=== PATIENT | male | born 1980 | race Caucasian/White ===

== ENCOUNTER 2020-06-28 10:15 | Emergency (ER) | payer BC, SELFPAY ==
--- NOTE | ~2020-06-28 | CT_ITS ---
EXAMINATION: CT abdomen pelvis w con INDICATION: Abdominal pain TECHNIQUE: Computed tomographic images of the abdomen and pelvis were obtained after the administrati on of 100 cc of Omnipaque 350 intravenous contrast. The dose-length product (DLP) was 316.39 mGy-cm. Automated exposure control and iterative reconstruction technique were employed. COMPARISON: 11/11/2019 FINDINGS: The lung bases are clear. The heart size is normal. Cysts of the liver measure up to 7 mm i n the right hepatic lobe. The spleen, pancreas, gallbladder, and adrenal glands are normal. The kidne ys are unremarkable. No pathologically enlarged abdominal or pelvic lymph nodes are identified. There is no free intraperitoneal gas or evidence of bowel obstruction. The appendix is normal. A moderate volume of colonic stool is present. IMPRESSION: 1. No CT correlate for the patient's symptoms. Reviewed, dictated and finalized at location A.
[2020-06-28 10:19] VITALS: BP 121/74; PULSE 63; RESP 18; TEMP 36.6; O2SAT 100
[2020-06-28 10:35] VITALS: BP 108/78; PULSE 57; RESP 17; O2SAT 100
[2020-06-28] MEDS: SODIUM CHLORIDE 0.9% IV 1,000 ML 999 ML IV CONT (10:42)
[2020-06-28] MEDS: FAMOTIDINE 20 MG/2 ML VIAL IV PUSH (10:43)
[2020-06-28] MEDS: ONDANSETRON INJ 4 MG/2 ML VIAL IV PUSH (10:43)
--- NOTE | 2020-06-28 10:44 | ED.ABDPAIN ---
HPI - Abdominal Pain General Chief Complaint: Abdominal Pain <LOPEZ Mott Last Filed: 06/28/20 11:52> Stated Complaint: ABD Pain <LOPEZ Mott Last Filed: 06/28/20 11:52> Time Seen by Provider: 06/28/20 10:20 <LOPEZ Mott Last Filed: 06/28/20 11:52> Source: patient <LOPEZ Mott Last Filed: 06/28/20 11:52> Mode of arrival: ambulatory <LOPEZ Mott Last Filed: 06/28/20 11:52> Limitations: no limitations <LOPEZ Mott Last Filed: 06/28/20 11:52> History of Present Illness HPI narrative: Patient is a 40-year-old male who presents with several days duration of generalized abdominal pain noting aching pain throughout the abdomen worse in the lower quadrants patient notes nausea denies emesis notes initially and had some loose stools which have resolved patient denies rectal bleeding or melena or similar occurrence in the past patient has not taken anything for her symptoms. Patient otherwise resting comfortably in the room in no distress upon arrival symptoms worsen with position and activity <LOPEZ Mott Last Filed: 06/28/20 11:52> Related Data Home Medications: Home Medications Medication Instructions Recorded Confirmed gabapentin 300 mg PO DAILY 06/28/20 <LOPEZ Mott Last Filed: 06/28/20 11:52> Allergies/Adverse Reactions: Allergies Allergy/AdvReac Type Severity Reaction Status Date / Time Sulfa (Sulfonamide Allergy Intermediate hives Verified 06/28/20 10:21 Antibiotics) nystatin Allergy Mild hives Verified 06/28/20 10:21 erythromycin base AdvReac Mild Nausea Verified 06/28/20 10:21 phenobarbital AdvReac Mild hyperactivi Verified 06/28/20 10:21 ty <LOPEZ Mott Last Filed: 06/28/20 11:52> Review of Systems Review of Systems: All systems reviewed & are unremarkable except as noted in HPI and below <LOPEZ Mott Last Filed: 06/28/20 11:52> PMFSH Past Medical History Medical History: Medical History Eosinophilic esophagitis Seizures <Amadou Carter PA-C - Last Filed: 06/28/20 11:52> Surgical History Surgical History: Surgical History H/O foot surgery H/O knee surgery History of back surgery S/P orchiopexy <Amadou Carter PA-C - Last Filed: 06/28/20 11:52> Family History Family History: Family History Father Hypertension Mother Hypertension Grandparent Diabetes mellitus <LOPEZ Mott Last Filed: 06/28/20 11:52> Social History Social History: Social History (Updated 06/28/20 @ 10:46 by Amadou Carter PA-C) Smoking status: Never smoker Alcohol intake: current Gender identity (if verbalized by the patient): Male <Amadou Carter PA-C - Last Filed: 06/28/20 11:52> Exam Narrative: Exam Narrative: GENERAL: Well-appearing, well-nourished, and in no acute distress. HEAD: Normocephalic, atraumatic. EYES: PERRLA and EOMI. ENT: Nares clear, no rhinorrhea or epistaxis. Mucous membranes moist. CHEST: Clear to auscultation. No respiratory distress. No wheezes rales or rhonchi HEART: Regular rate and rhythm. No murmur heard. Normal peripheral pulses. ABDOMEN: Soft, generalized abdominal tenderness, nondistended EXTREMITIES: Normal range of motion. No edema. SKIN: Warm, dry, no rash. NEURO: No focal deficits. Alert and oriented x3. PSYCH: Normal mood and affect. <LOPEZ Mott Last Filed: 06/28/20 11:52> Course Course Emergency Course: Patient in the room in no distress aware of case findings treatment plan diagnosis agreeing to follow-up with primary care given reasons to return given medications in the emergency department with improvement <Amadou Carter PA-C - Last Fi
[2020-06-28 11:05] LABS: Estimated Glomerular Filt Rate 56
[2020-06-28 11:06] LABS: Basophils Absolute Auto 0.1 K/mm3 (0.0-0.1); Basophils Percent Auto 1.3 % (0.2-1.2); Eosinophils Absolute Auto 0.3 K/mm3 (0-0.3); Hematocrit 42.9 % (42.0-52.0); Hemoglobin 14.4 g/dL (14.0-18.0); Immature Granulocyte Absolute 0.01 K/mm3 (0.00-0.031); Immature Granulocyte Percent A 0.2 % (0-0.5); Lymphocytes Absolute Auto 2.64 K/mm3 (0.9-3.2); Lymphocytes Percent Auto 42.2 % (18.3-44.2); Mean Corpuscular HGB Conc 33.6 g/dl (32-36); Mean Corpuscular Hemoglobin 31.9 pg (26-34); Mean Corpuscular Volume 94.9 fl (80-100); Mean Platelet Volume 9.5 fl (7.4-10.4); Monocytes Absolute Auto 0.5 K/mm3 (0.1-0.6); Monocytes Percent Auto 8.5 % (2.6-8.5); Neutrophils Absolute Auto 2.7 K/mm3 (1.3-6.7); Neutrophils Percent Auto 43.8 % (45.5-73.1); Platelet Count Result 289 k/mm3 (150-375); Red Blood Count 4.52 M/mm3 (4.6-6.20); White Blood Count 6.3 K/mm3 (4.5-10.0)
[2020-06-28 11:21] LABS: Alanine Aminotransferase 19 U/L (4-50); Albumin Level 4.5 g/dL (3.5-5.1); Alkaline Phosphatase 59 U/L (38-126); Anion Gap 7 mmol/L (8-16); Aspartate Amino Transferase 26 U/L (17-59); Bilirubin,Total 0.5 mg/dL (0.2-1.3); Blood Urea Nitrogen 12 mg/dL (9-20); Calcium 9.3 mg/dL (8.4-10.2); Carbon Dioxide 33 mmol/L (22-30); Chloride 99 mmol/L (98-107); Estimated Glomerular Filt Rate > 60; Glucose 91 mg/dL (75-110); Lipase 179 U/L (23-300); Potassium 3.8 mmol/L (3.4-5.0); Sodium 139 mmol/L (137-145)
[2020-06-28 11:46] LABS: Add Urine Microscopic? NO; Appearance Urine Clear (Clear); Bilirubin Urine Negative (Negative); Blood Urine Negative (Negative); Color Urine Straw (Yellow); Glucose Urine UA Negative (Negative); Ketones Urine Negative (Negative); Leukocyte Esterase Ur Negative LEU/UL (Negative); Nitrate Urine Negative (Negative); Protein Urine Negative (Negative); Urobilinogen Urine Negative mg/dL (<2.0)
[2020-06-28 11:47] LABS: Specific Grav Ur 1.034 (1.001-1.035)
[2020-06-28 12:39] VITALS: BP 114/66; PULSE 67; RESP 18; O2SAT 100
== END 2020-06-28 12:40 | disposition home or self-care (01) ==
PROVIDERS: Emergency Medicine Emergency Medical Services; Emergency Provider Emergency Medicine; PCP Internal Medicine
DX: R10.84 Generalized abdominal pain (principal)
CPT/HCPCS: 36415; 74177; 80053; 81003; 83690; 85025; 96361; 96374; 96375; 99284; J0131; J2405; J7030; Q9967

== ENCOUNTER 2020-11-14 20:20 | Emergency (ER) | payer BC, SELFPAY ==
--- NOTE | ~2020-11-14 | XR_ITS ---
EXAMINATION: XR chest 2V DATE: 11/14/2020 21:20 INDICATION: Cough and shortness of breath TECHNIQUE: PA and lateral views of the chest are obtained. COMPARISON: 06/18/2015 FINDINGS: There are patchy opacities of the mid lung zones. There is no pleural effusion or pneumotho rax. The cardiomediastinal silhouette is normal. The visualized bones and soft tissues are unremarkab le. IMPRESSION: 1. Patchy opacities of the mid lung zones, consistent with atelectasis versus pneumonia. Reviewed, dictated and finalized at location A. PREVENTION DETECTIVE IMPRESSION: 1. Patchy opacities of the mid lung zones, consistent with atelectasis versus p neumonia.
[2020-11-14 20:29] VITALS: BP 102/66; PULSE 63; RESP 18; TEMP 36.3; O2SAT 100
--- NOTE | 2020-11-14 20:33 | ECG_ITS ---
Measurements Intervals [place] Rate: 57 P: 64 MI: 185 QRS: 78 QRSD: 88 T: 47 QT: 370 QTc: 361 Interpretive Statements SINUS BRADYCARDIA BASELINE ARTIFACT- I, II, III, AVL BORDERLINE ECG Electronically Signed On 11-15-2020 7:27:35 [employer] by Omid Ko D.O.
[2020-11-14 21:13] LABS: Basophils Percent Auto 0.8 % (0.2-1.2); Eosinophils Absolute Auto 0.3 K/mm3 (0-0.3); Eosinophils Percent Auto 5.4 % (0-4.4); Hematocrit 42.5 % (42.0-52.0); Hemoglobin 14.2 g/dL (14.0-18.0); Immature Granulocyte Absolute 0.01 K/mm3 (0.00-0.031); Immature Granulocyte Percent A 0.2 % (0-0.5); Lymphocytes Percent Auto 33.9 % (18.3-44.2); Mean Corpuscular HGB Conc 33.4 g/dl (32-36); Mean Corpuscular Hemoglobin 32.2 pg (26-34); Mean Corpuscular Volume 96.4 fl (80-100); Mean Platelet Volume 9.2 fl (7.4-10.4); Monocytes Absolute Auto 0.6 K/mm3 (0.1-0.6); Monocytes Percent Auto 11.6 % (2.6-8.5); Neutrophils Absolute Auto 2.4 K/mm3 (1.3-6.7); Neutrophils Percent Auto 48.1 % (45.5-73.1); Platelet Count Result 230 k/mm3 (150-375); Red Blood Count 4.41 M/mm3 (4.6-6.20); Red Cell Distribution Width 11.9 % (11.5-14.5)
[2020-11-14 21:25] LABS: Anion Gap 3 mmol/L (8-16); Blood Urea Nitrogen 10 mg/dL (9-20); Calcium 8.6 mg/dL (8.4-10.2); Carbon Dioxide 29 mmol/L (22-30); Chloride 104 mmol/L (98-107); Estimated CRCL calculation 85 ml/min; Estimated Glomerular Filt Rate > 60; Glucose 88 mg/dL (75-110); Potassium 3.7 mmol/L (3.4-5.0); Sodium 136 mmol/L (137-145)
--- NOTE | 2020-11-14 22:54 | PC.NURSE ---
[id number]-no answer to call-unable to find in [facility] [id number]-no answer to call-unable to find [id number]--no answer-not in WR
== END 2020-11-14 23:13 | disposition left against medical advice (07) ==
LOC: ANHED 23:00
PROVIDERS: Emergency Provider Emergency Medicine; Family Provider Internal Medicine; PCP Internal Medicine
DX: U07.1 COVID-19 (principal)
CPT/HCPCS: 36415; 71046; 80048; 85025; 93005; 99199

== ENCOUNTER 2020-11-17 11:36 | Emergency (ER) | payer BC, SELFPAY ==
[2020-11-17] VITALS (17 sets, daily range): BP systolic 108–126; BP diastolic 60–74; PULSE 63–99; RESP 12–33; TEMP 36.7; O2SAT 98–100
--- NOTE | ~2020-11-17 | CT_ITS ---
EXAMINATION: CTA chest PE protocol DATE: 11/17/2020 14:05 INDICATION: COVID positive. Dyspnea. TECHNIQUE: Computed tomography (CT) pulmonary angiogram of the chest was performed with 100 mL Omnipa que-350 intravenous contrast. Additional 3D reconstructions utilizing coronal maximum intensity proje ction (MIP) were performed. Automated exposure control and iterative reconstruction technique were em ployed. The dose-length product was 192.51 mGy-cm. COMPARISON: None FINDINGS: Excellent contrast opacification of the pulmonary arteries. There is mild streak artifact from dense contrast in the superior vena cava and right atrium. Mild scattered respiratory motion artifact which does not significantly limit evaluation. No pulmonary embolism. No pneumonia, pulmonary edema or oth er pulmonary infiltrates. No pleural effusion or pneumothorax. Heart size is normal. No pericardial e ffusion. Thoracic aorta is normal in caliber with no dissection. No pathologically enlarged thoracic lymphadenopathy. Mild bilateral gynecomastia. 1.3 cm cyst in the right hepatic lobe. Visualized upper abdomen is otherwise unremarkable. Mild thoracic spondylosis. IMPRESSION: 1. No pulmonary embolism, pneumonia or other acute cardiopulmonary disease. Reviewed, dictated and finalized at location B. EY ANALYST
--- NOTE | ~2020-11-17 | XR_ITS ---
EXAMINATION: XR chest 1V portable DATE: 11/17/2020 12:16 INDICATION: Cough. TECHNIQUE: A single frontal view of the chest was obtained. COMPARISON: Chest 2 views 11/14/2020 FINDINGS: The chest demonstrates clear lungs without pneumonia, pleural effusion, or pneumothorax. Th e heart size is normal. IMPRESSION: 1. No acute cardiopulmonary disease. Reviewed, dictated and finalized at location A. IECE CHOPPER
--- NOTE | 2020-11-17 11:40 | ECG_ITS ---
Measurements Intervals [place] Rate: 75 P: 65 OR: 160 QRS: 74 QRSD: 89 T: 42 QT: 343 QTc: 384 Interpretive Statements SINUS RHYTHM NORMAL ECG Electronically Signed On 11-17-2020 12:53:19 [employer] by Omid Ko D.O.
--- NOTE | 2020-11-17 11:50 | ED.SOB ---
HPI - SOB/Dyspnea General Chief Complaint: Shortness of Breath/Dyspnea Stated Complaint: difficulty breathing COVID + Time Seen by Provider: 11/17/20 11:43 Source: RN notes reviewed History of Present Illness HPI Narrative: Patient presents emergency department from home for shortness of breath and chest pain. Patient states he was diagnosed with COVID-19 on 11 November. He states that over the past 4 days he has been having pain in the bilateral lower chest that is worse with coughing. He does state low-grade fevers and also notes a feeling of shortness of breath states he is having a nonproductive cough he denies any abdominal pain nausea vomiting or any other symptoms. States he has been taking ibuprofen at home for the pain Related Data Home Medications Medication Instructions Recorded Confirmed gabapentin 300 mg PO DAILY 06/28/20 Allergies Allergy/AdvReac Type Severity Reaction Status Date / Time Sulfa (Sulfonamide Allergy Intermediate hives Verified 11/17/20 11:45 Antibiotics) nystatin Allergy Mild hives Verified 11/17/20 11:45 erythromycin base AdvReac Mild Nausea Verified 11/17/20 11:45 phenobarbital AdvReac Mild hyperactivi Verified 11/17/20 11:45 ty Review of Systems Review of Systems: Narrative: Gen.: Reports low-grade fever Eyes: Denies eye pain or visual change ENT: Denies congestion Respiratory: See HPI CV: Reports bilateral lower chest pain GI: Denies abdominal pain nausea, emesis or diarrhea Musculoskeletal: Denies back pain or muscle pain Neuro: Denies numbness, tingling, weakness or focal weakness Skin: Denies rash Except as documented, all other systems reviewed and negative [facility] Past Medical History Medical History (Updated 11/17/20 @ 14:35 by Stanislav Bernal DO) Eosinophilic esophagitis Seizures Surgical History Surgical History H/O foot surgery H/O knee surgery History of back surgery S/P orchiopexy Family History Family History Father Hypertension Mother Hypertension Grandparent Diabetes mellitus Social History Social History Smoking status: Never smoker Alcohol intake: current Gender identity (if verbalized by the patient): Male Exam Narrative: Exam Narrative: APPEARANCE: No acute distress, nontoxic, resting in bed EYES: EOMI HEENT: Normocephalic, atraumatic, OMM RESPIRATORY: No respiratory distress Clear to auscultation bilaterally with no rhonchi wheezing or rales. CARDIOVASCULAR: Regular rate and rhythm without murmurs rubs or gallops. Chest: Turn palpation over the bilateral anterior lateral chest wall pain increased with deep inspiration and coughing ABDOMINAL: Soft, nontender, nondistended, no rebound or guarding MUSCULOSKELETAl: Moves all extremities. No clubbing, cyanosis or edema. NEURO: Awake and alert. Following commands, speech normal, no focal deficits SKIN:: Warm, dry. No rashes lesions or abrasions PSYCHIATRIC: Normal affect/mood, Course Course Emergency Course: Discussed with patient results of workup and diagnosis. Discussed need for follow-up with primary care, proper use of medication, and reasons to return to the emergency department. Patient understands and agrees to current treatment plan Vital Signs Vital signs: Vital Signs Temperature 98.0 F 11/17/20 11:40 Pulse Rate 85 11/17/20 11:40 Respiratory Rate 19 11/17/20 11:40 Blood Pressure 120/73 11/17/20 11:40 Pulse Oximetry 99 11/17/20 11:40 Temperature 98.0 F 11/17/20 11:40 Pulse Rate 78 11/17/20 14:30 Respiratory Rate 15 11/17/20 14:30 Blood Pressure 126/60 11/17/20 13:46 Pulse Oximetry 100 11/17/20 14:30 MDM - SOB/Dyspnea MDM Narrative Medical decision making narrative: Patient's EKGs and labs are without significant high risk changes. Cardiac risk factors revie
[2020-11-17 12:06] LABS: Basophils Percent Auto 0.7 % (0.2-1.2); Eosinophils Absolute Auto 0.2 K/mm3 (0-0.3); Eosinophils Percent Auto 2.9 % (0-4.4); Hematocrit 43.3 % (42.0-52.0); Hemoglobin 14.3 g/dL (14.0-18.0); Immature Granulocyte Absolute 0.02 K/mm3 (0.00-0.031); Immature Granulocyte Percent A 0.4 % (0-0.5); Lymphocytes Percent Auto 34.1 % (18.3-44.2); Mean Corpuscular Hemoglobin 32.2 pg (26-34); Mean Corpuscular Volume 97.5 fl (80-100); Mean Platelet Volume 9.1 fl (7.4-10.4); Monocytes Absolute Auto 0.7 K/mm3 (0.1-0.6); Neutrophils Absolute Auto 2.8 K/mm3 (1.3-6.7); Neutrophils Percent Auto 49.9 % (45.5-73.1); Platelet Count Result 226 k/mm3 (150-375); Red Blood Count 4.44 M/mm3 (4.6-6.20); White Blood Count 5.6 K/mm3 (4.5-10.0)
[2020-11-17 12:17] LABS: D Dimer 0.32 ug/mL (<0.48)
[2020-11-17 12:18] LABS: Anion Gap 7 mmol/L (8-16); Blood Urea Nitrogen 14 mg/dL (9-20); Calcium 8.5 mg/dL (8.4-10.2); Carbon Dioxide 30 mmol/L (22-30); Chloride 102 mmol/L (98-107); Estimated CRCL calculation 88 ml/min; Estimated Glomerular Filt Rate > 60; Glucose 113 mg/dL (75-110); Potassium 3.9 mmol/L (3.4-5.0); Sodium 139 mmol/L (137-145)
--- NOTE | 2020-11-17 12:24 | PC.NURSE ---
called chem, added on lipase and hepatic panel, [id number]
[2020-11-17 12:30] LABS: Troponin I < 0.012 ng/mL (0.000-0.034)
[2020-11-17 12:40] LABS: Alanine Aminotransferase 20 U/L (4-50); Albumin Level 4.1 g/dL (3.5-5.1); Alkaline Phosphatase 61 U/L (38-126); Aspartate Amino Transferase 29 U/L (17-59); Bilirubin,Total 0.3 mg/dL (0.2-1.3); Lipase 148 U/L (23-300)
[2020-11-17] MEDS: ALBUTEROL SULFATE (*SP) AEROSOL 1 PUFF 2 PUFF INHALATION (12:45)
[2020-11-17] MEDS: methylPREDNISolone SOD SUCC 125 MG VIAL IV PUSH (14:40)
== END 2020-11-17 14:46 | disposition home or self-care (01) ==
PROVIDERS: Emergency Medicine; Emergency Provider Emergency Medicine; Family Provider Internal Medicine; PCP Internal Medicine
DX: U07.1 COVID-19 (principal); R07.89 Other chest pain
CPT/HCPCS: 36415; 71045; 71275; 80048; 80076; 83690; 84484; 85025; 85380; 93005; 96374; 99284; A9270; J2930; Q9967

== ENCOUNTER 2021-02-05 07:45 | Emergency (ER) | payer OTHER, BC, SELFPAY ==
--- NOTE | ~2021-02-05 | XR_ITS ---
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 TECHNIQUE: Right hip frontal, 'frog leg' projections for interpretation. Frontal projection pelvis. There is no prior study for comparison. FINDINGS: Smooth hip contours bilaterally, no radiographic evidence of avascular necrosis. There are no acute pelvic or right hip fractures or dislocations identified. There is no subcutaneous gas. T he soft tissue is unremarkable. There are no radiopaque foreign bodies. Sacrum, sacroiliac joints, sacral arcuate lines are intact. IMPRESSION: 1. Unremarkable pelvis, right hip exam. Reviewed, dictated and finalized at location A.
[2021-02-05 07:50] VITALS: BP 129/80; PULSE 85; RESP 16; TEMP 36.6; O2SAT 100
--- NOTE | 2021-02-05 08:19 | ED.LOWEXIN ---
HPI - Extremity Injury (Lower) General Chief Complaint: Extremity Injury, Lower Stated Complaint: R hip pain Time Seen by Provider: 02/05/21 07:51 Source: patient Mode of arrival: ambulatory Limitations: no limitations History of Present Illness HPI Narrative: This is a 40 year old male who presents for evaluation of right hip pain. 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 He has pain with walking and it worsened on Tuesday. He has been taking ibuprofen for pain but he has not taken any today. He denies numbness or tingling. Related Data Home Medications Medication Instructions Recorded Confirmed gabapentin 300 mg PO DAILY 06/28/20 Allergies Allergy/AdvReac Type Severity Reaction Status Date / Time Sulfa (Sulfonamide Allergy Intermediate hives Verified 02/05/21 08:00 Antibiotics) nystatin Allergy Mild hives Verified 02/05/21 08:00 erythromycin base AdvReac Mild Nausea Verified 02/05/21 08:00 phenobarbital AdvReac Mild hyperactivi Verified 02/05/21 08:00 ty Review of Systems Review of Systems: All systems reviewed & are unremarkable except as noted in HPI and below PMFSH Past Medical History Medical History (Updated 02/05/21 @ 09:05 by Pauline Moffett MD) Eosinophilic esophagitis Seizures Surgical History Surgical History H/O foot surgery H/O knee surgery History of back surgery S/P orchiopexy Family History Family History Father Hypertension Mother Hypertension Grandparent Diabetes mellitus Social History Social History Smoking status: Never smoker Alcohol intake: current Gender identity (if verbalized by the patient): Male Exam Const: General: no acute distress and alert Orientation/consciousness: patient oriented x3 Eyes: EOM: EOMs intact bilaterally Resp: Effort & Inspection: normal respiratory effort Back/Spine/Pelvis: Back: no CVA tenderness Skin: General skin exam: normal color Rashes: no rashes Neuro: General: patient oriented x3, moves all extremities and CN's II-XI intact bilaterally Extrem: General: no pedal edema Other: FROM , no redness, no swelling, patient is able to wear weight on right hip and walk. He is neurovascularly intact Psych: Mental Status: mental status grossly normal Affect: normal affect Course Reevaluation(s) Reevaluation #1: I Discussed with patient xray results. I discussed he may have bursitis. He has not sign of infectious source. He reports he feels better after toradol. I have discussed discharge plan and treatment. He states he understands and he is agreeable. Date: 02/05/21 Time: 09:02 Vital Signs Vital signs: Vital Signs Temperature 97.9 F 02/05/21 07:50 Pulse Rate 85 02/05/21 07:50 Respiratory Rate 16 02/05/21 07:50 Blood Pressure 129/80 02/05/21 07:50 Pulse Oximetry 100 02/05/21 07:50 Temperature 97.9 F 02/05/21 07:50 Pulse Rate 66 02/05/21 09:30 Respiratory Rate 16 02/05/21 09:30 Blood Pressure 116/80 02/05/21 09:30 Pulse Oximetry 98 02/05/21 09:30 MDM - Extremity Injury (Lower) Imaging Data Radiologist's impression: ITS Impressions Hip/Pelvis X-Ray 02/05/21 08:16 IMPRESSION: 1. Unremarkable pelvis, right hip exam. Discharge Plan Discharge Clinical Impression: Acute pain of right hip Patient Disposition: Home, Self-Care Condition: Stable Instructions: Antibiotic Form, Hip Bursitis (ED), Hip Pain (ED) Additional Instructions: Please follow up with your primary care physician or your orthopedic surgeon for evaluation of your hip pain if it continues after 72 hours. This is likely due to inflammatio. Treatment is rest, ice, antiinflammatory. Prescriptions: New methylprednisolone [Medrol (Tim)] 4 mg tablets,dose
[2021-02-05] MEDS: KETOROLAC (*BKC) 60 MG/2 ML VIAL IM (08:22)
[2021-02-05 09:30] VITALS: BP 116/80; PULSE 66; RESP 16; O2SAT 98
== END 2021-02-05 09:30 | disposition home or self-care (01) ==
PROVIDERS: Emergency Provider General Practice; PCP Internal Medicine
DX: M25.551 Pain in right hip (principal)
CPT/HCPCS: 73502; 96372; 99283; J1885

== ENCOUNTER → 2021-03-12 13:54 | Outpatient (CLI) | payer BC, SELFPAY ==
--- NOTE | ~2021-03-12 | MR_ITS ---
EXAMINATION: MR lumbar spine wo/w con EXAM DATE: 03/12/2021 14:50 INDICATION: Lower back pain with radiation to the right lateral thigh lower back pain. TECHNIQUE: Multi-sequential, multiplanar MR images of the lumbar spine were obtained without contrast . Sagittal T1, T2, T2 fat saturation images. Axial T2 weighted images. Axial T1 weighted sequence. Patient was then injected with 14 mL Multihance intravenous contrast and reimaged. Postcontrast axi al and sagittal T1-weighted fat saturation sequences were obtained. Comparison is made to prior exami nation from 11/10/2008. FINDINGS: The conus medullaris terminates at the T12-L1 level and has normal signal intensity and mor phology. There is mild disc disease L5-S1 with 2 mm retrolisthesis. The vertebral bodies are otherwi se aligned. The vertebral body and disc heights are otherwise well maintained. There are scattered fo kamila signal abnormalities consistent with hemangiomata, otherwise without focal suspicious marrow sign al abnormalities. Level by level evaluation: T12-L1: Disc does not extend beyond the endplate margin. Facet arthropathy: None. Neural foraminal stenosis: No stenosis. Central canal stenosis: No stenosis. L1-L2: Disc does not extend beyond the endplate margin. Facet arthropathy: None. Neural foraminal stenosis: No stenosis. Central canal stenosis: No stenosis. L2-L3: Disc does not extend beyond the endplate margin. Facet arthropathy: Minimal. Neural foraminal stenosis: No stenosis. Central canal stenosis: No stenosis. L3-L4: There is a mild diffuse disc bulge. Facet arthropathy: Mild. Neural foraminal stenosis: Mild bilateral. Central canal stenosis: No stenosis. L4-L5: There is a mild diffuse disc bulge. Facet arthropathy: Mild. Neural foraminal stenosis: Mild to moderate right, mild left. Central canal stenosis: Mild. L5-S1: There is a mild diffuse disc bulge tiny superimposed right central protrusion. Facet arthropathy: Mild. Neural foraminal stenosis: Mild to moderate bilateral. Central canal stenosis: No stenosis. There is mild enhancement surrounding the tiny right central protrusion at this level, probably mild inflammation. Touches and inflammation potentially could be irritating the traversing S1 nerve root i n the lateral recess. Otherwise no areas of abnormal enhancement. IMPRESSION: L5-S1 mild disc bulge with tiny superimposed right central protrusion, mild surrounding i nflammation potentially could be irritating the S1 nerve root in the lateral recess. Consider nonster oidal anti-inflammatory treatment, or nerve root block. Reviewed, dictated and finalized at location A. IMPRESSION: L5-S1 mild disc bulge with tiny superimposed right central protrusi on, mild surrounding inflammation potentially could be irritating the S1 nerve root in the lateral recess. Consider nonsteroidal anti-inflammatory treatment, or nerve root block.
[2021-03-12 14:18] LABS: Estimated Glomerular Filt Rate > 60
== END ==
PROVIDERS: Visit Provider Chiropractor
DX: M47.817 Spondylosis without myelopathy or radiculopathy, lumbosacral region (principal); M48.07 Spinal stenosis, lumbosacral region
CPT/HCPCS: 72158; A9577

== ENCOUNTER 2022-01-21 10:57 | Emergency (ER) | payer BC, SELFPAY ==
[2022-01-21 11:13] VITALS: BP 107/72; PULSE 93; RESP 16; TEMP 36.4; O2SAT 98
--- NOTE | 2022-01-21 11:29 | ED.MALEGU ---
HPI - Male Genitourinary General Chief complaint: Urogenital-Male Stated complaint: PAINFUL URINATION Time Seen by Provider: 01/21/22 11:29 Source: patient, RN notes reviewed and old records reviewed Mode of arrival: ambulatory Limitations: no limitations History of Present Illness HPI Narrative: 41-year-old male who presents to [facility] with 2-week duration of painful urination with pressure in the rectal area with pressure to testicles when he urinates. Patient states similar symptoms about 1 1/2 years ago with diagnosis of prostatitis. He states that at that time he saw a urologist at [facility]. Patient denies any redness, or swelling to testicles, denies any concerns for STD exposure, denies any penis drainage. Patient states that he has not had any fevers, chills or sweats. Reports that urinary stream is slow and decreased, denies any supra pubic abdominal tenderness or any flank pain. MD Complaint: dysuria Related Data Allergies Allergy/AdvReac Type Severity Reaction Status Date / Time Sulfa (Sulfonamide Allergy Intermediate hives Verified 01/21/22 11:12 Antibiotics) nystatin Allergy Mild hives Verified 01/21/22 11:12 erythromycin base AdvReac Mild Nausea Verified 01/21/22 11:12 phenobarbital AdvReac Mild hyperactivi Verified 01/21/22 11:12 ty Review of Systems Review of Systems: CONSTITUTIONAL: No fever, chills, or sweats. EYES: Denies visual changes, redness, or discharge. ENT: Denies rhinorrhea, congestion, sore throat, or otalgia. CARDIOVASCULAR: Denies chest pain, palpitations, or edema. RESPIRATORY: Denies cough or dyspnea. GASTROINTESTINAL: Denies abdominal pain, nausea, vomiting, or diarrhea. GENITOURINARY: Positive for dysuria no hematuria. SKIN: Denies rash or itching. MUSCULOSKELETAL: Denies back pain, joint pain, or myalgia., reports rectal pressure and pressure to testicles when voiding with burning NEUROLOGIC: Denies headache, numbness, or weakness. PSYCHIATRIC: Denies anxiety or depression. All systems reviewed & are unremarkable except as noted in HPI and below PMFSH Past Medical History Medical History (Updated 01/21/22 @ 11:47 by Amparo Ramirez NP) Eosinophilic esophagitis Seizures Surgical History Surgical History H/O foot surgery H/O knee surgery History of back surgery S/P orchiopexy Family History Family History Father Hypertension Mother Hypertension Grandparent Diabetes mellitus Social History Social History Smoking status: Never smoker Alcohol intake: current Gender identity (if verbalized by the patient): Male Comments At time of signature, agree with nursing past medical, surgical, social and family history. There is no relevant family history pertinent to the presenting complaint Exam Narrative: GENERAL: Well-appearing, well-nourished, and in no acute distress. HEAD: Normocephalic, atraumatic. EYES: PERRLA and EOMI. ENT: Nares clear, no rhinorrhea or epistaxis. Mucous membranes moist. NECK: Supple. no lymphadenopathy CHEST: Clear to auscultation. No respiratory distress.no cough SAO2 98% on room air, no tachypnea or any accessory muscle use. HEART: Regular rate and rhythm. No murmur heard. Normal peripheral pulses. ABDOMEN: Soft, nontender to palpation, nondistended, normal active bowel sounds.no CVA tenderness or any testicle pain except noted for pressure to testicle with urination,positive rectal pressure EXTREMITIES: Normal range of motion. No edema. SKIN: Warm, dry, no rash. NEURO: No focal deficits. Alert and oriented x3. Course Course Level of Care: Express Care Visit Vital Signs Vital signs: Vital Signs Temperature 36.4 C L 01/21/22 11:13 Pulse Rate 93 01/21/22 11:13 Respiratory Rate 16 01/21/22 11:13 Blood Pressure 107/72 01/21/22 11:13 Pulse Oximetry
== END 2022-01-21 12:08 | disposition home or self-care (01) ==
PROVIDERS: Emergency Provider Registered Nurse; PCP Internal Medicine
DX: N41.0 Acute prostatitis (principal)
CPT/HCPCS: 81003; 99213; G0463

== ENCOUNTER 2022-09-14 13:35 | Emergency (ER) | payer BC, SELFPAY ==
[2022-09-14 13:36] VITALS: BP 118/70; PULSE 91; RESP 18; TEMP 36.9; O2SAT 99
--- NOTE | 2022-09-14 14:14 | ED.GENADULT ---
HPI - General Adult General Chief complaint: Skin/Abscess/Foreign Body Stated complaint: abcess on anus Time Seen by Provider: 09/14/22 14:01 History of Present Illness HPI narrative: 42-year-old male presented to the emergency department for evaluation of an abscess near his anus. Patient states the symptoms started present less than a week ago. He noted that it started as a painful pimple and has worsened over the course of the last few days. Patient has no prior history of abscesses. Patient denies any pain with bowel movements. Related Data Home Medications Medication Instructions Recorded Confirmed doxycycline hyclate 150 mg tablet 150 mg PO Q12H 09/20/22 09/22/22 Allergies Allergy/AdvReac Type Severity Reaction Status Date / Time Sulfa (Sulfonamide Allergy Intermediate hives Verified 09/20/22 14:42 Antibiotics) nystatin Allergy Mild hives Verified 09/20/22 14:42 erythromycin base AdvReac Mild Nausea Verified 09/20/22 14:42 phenobarbital AdvReac Mild hyperactivi Verified 09/20/22 14:42 ty Review of Systems Review of Systems: CONSTITUTIONAL: Denies fever, chills, or sweats. EYES: Denies visual changes, redness, or discharge. ENT: Denies rhinorrhea, congestion, sore throat, or otalgia. CARDIOVASCULAR: Denies chest pain, palpitations, or edema. RESPIRATORY: Denies cough or dyspnea. GASTROINTESTINAL: Denies abdominal pain, nausea, vomiting, or diarrhea. GENITOURINARY: Denies dysuria or hematuria. SKIN: Abscess, see HPI MUSCULOSKELETAL: Denies back pain, joint pain, or myalgia. [facility] Past Medical History Medical History (Updated 09/20/22 @ 15:30 by Nivia yLles) Eosinophilic esophagitis Seizures Surgical History Surgical History H/O foot surgery H/O knee surgery History of back surgery S/P orchiopexy Family History Family History Father Hypertension Mother Hypertension Grandparent Diabetes mellitus Social History Social History Smoking status: Never smoker Alcohol intake: current Gender identity (if verbalized by the patient): Male Exam Narrative: APPEARANCE: Well appearing, no pain, no distress, well-nourished. HEAD: normocephalic, atraumatic. EYES: PERRLA/EOMI, conjunctivae clear. NOSE: Normal no drainage EARS:TMS clear with good light reflex. THROAT: Pharynx clear, no exudate. NECK: Supple. No adenopathy, no masses. RESPIRATORY: Airway patent, respirations nonlabored. Clear to auscultation bilaterally, no rales, rhonchi, wheezing. CARDIOVASCULAR: Regular rate and rhythm without murmurs rubs or gallops. ABDOMINAL: Soft, nontender, nondistended, normal bowel sounds MUSCULOSKELETAL: Moves all extremities. Strength/ROM intact, No edema, No calf tenderness. NEURO: Alert. Cranial nerves II through XII intact. Good gait. Good coordination SKIN: Warm, dry. Normal Color. Erythematous area nightly 3 cm away from the rectum. Some mild fluctuance there with a small langley. No rectal tenderness to palpation. PSYCHIATRIC: Normal affect/mood. Course Course Emergency Course: Abscess was drained as described and was packed with iodoform gauze. Patient was encouraged to close follow-up with surgery. Vital Signs Vital signs: Vital Signs Temperature 98.5 F 09/14/22 13:36 Pulse Rate 91 09/14/22 13:36 Respiratory Rate 18 09/14/22 13:36 Blood Pressure 118/70 09/14/22 13:36 Pulse Oximetry 99 09/14/22 13:36 Oxygen Delivery Room Air 09/14/22 13:36 Temperature 98.3 F 09/14/22 15:08 Pulse Rate 76 09/14/22 15:08 Respiratory Rate 16 09/14/22 15:08 Blood Pressure 122/70 09/14/22 15:08 Pulse Oximetry 100 09/14/22 15:08 Oxygen Delivery Room Air 09/14/22 13:36 Procedures Abscess I/D lachelle-rectal: Side (if applicable): left Amount of anesthesia used (m
[2022-09-14] MEDS: CLINDAMYCIN HCL 150 MG CAP PO (14:52)
[2022-09-14 15:08] VITALS: BP 122/70; PULSE 76; RESP 16; TEMP 36.8; O2SAT 100
== END 2022-09-14 15:09 | disposition home or self-care (01) ==
PROVIDERS: Emergency Provider Emergency Medicine; PCP Physician Assistant
DX: K61.1 Rectal abscess (principal); K20.0 Eosinophilic esophagitis
CPT/HCPCS: 10060; 46040; 87070; 87147; 87181; 87186; 87205; 99283; A9270

== ENCOUNTER 2023-03-30 18:11 | Emergency (ER) | payer BC, SELFPAY ==
--- NOTE | ~2023-03-30 | CT_ITS ---
EXAMINATION: CT abdomen pelvis w con INDICATION: Lower abdominal pain, hematochezia TECHNIQUE: Computed tomographic images of the abdomen and pelvis were obtained after the administrati on of 100 cc of Omnipaque 350 intravenous contrast. The dose-length product (DLP) was 426.46 mGy-cm. Automated exposure control and iterative reconstruction technique were employed. COMPARISON: 06/28/2020 FINDINGS: Minimal dependent atelectasis is present in the lung bases. The heart size is normal. There is moderate bilateral gynecomastia. Cysts of the liver measure up to 7 mm in the right hepatic lobe. The spleen, pancreas, gallbladder, and adrenal glands are normal. The kidneys are unremarkable. No p athologically enlarged abdominal or pelvic lymph nodes are identified. No free intraperitoneal gas or evidence of bowel obstruction. There is circumferential wall thickening of the urinary bladder. Ther e appears to be mild wall thickening of transverse and descending colon however the colon is not dist ended. The appendix is normal. There is moderate lumbar spondylosis at L5-S1. IMPRESSION: 1. Apparent wall thickening of the transverse and descending colon which could reflect colitis versus incomplete distention. 2. Wall thickening of the urinary bladder, cystitis versus incomplete distention. Reviewed, dictated and finalized at location F. IMPRESSION: 1. Apparent wall thickening of the transverse and descending colon which could reflect colitis versus incomplete distention. 2. Wall thickening of the urinary bladder, cystitis versus incomplete distentio n.
[2023-03-30 18:16] VITALS: BP 105/62; PULSE 75; RESP 16; TEMP 36.2; O2SAT 98
[2023-03-30 19:24] LABS: Basophils Absolute Auto 0.1 K/mm3 (0.0-0.1); Basophils Percent Auto 0.8 % (0.2-1.2); Eosinophils Absolute Auto 0.3 K/mm3 (0-0.3); Eosinophils Percent Auto 4.5 % (0-4.4); Hematocrit 42.9 % (42.0-52.0); Hemoglobin 14.2 g/dL (14.0-18.0); Immature Granulocyte Absolute 0.02 K/mm3 (0.00-0.031); Immature Granulocyte Percent A 0.3 % (0-0.5); Mean Corpuscular HGB Conc 33.1 g/dl (32-36); Mean Corpuscular Hemoglobin 32.3 pg (26-34); Mean Corpuscular Volume 97.7 fl (80-100); Mean Platelet Volume 8.9 fl (7.4-10.4); Monocytes Absolute Auto 0.6 K/mm3 (0.1-0.6); Monocytes Percent Auto 7.7 % (2.6-8.5); Neutrophils Absolute Auto 5.3 K/mm3 (1.3-6.7); Neutrophils Percent Auto 70.7 % (45.5-73.1); Platelet Count Result 239 k/mm3 (150-375); Red Blood Count 4.39 M/mm3 (4.6-6.20); Red Cell Distribution Width 11.9 % (11.5-14.5); White Blood Count 7.5 K/mm3 (4.5-10.0)
[2023-03-30 19:39] LABS: Alanine Aminotransferase 23 U/L (6-50); Alkaline Phosphatase 56 U/L (38-126); Anion Gap 1 mmol/L (8-16); Aspartate Amino Transferase 34 U/L (17-59); Bilirubin,Total 0.7 mg/dL (0.2-1.3); Blood Urea Nitrogen 17 mg/dL (9-20); Calcium 8.9 mg/dL (8.4-10.2); Carbon Dioxide 32 mmol/L (22-30); Chloride 104 mmol/L (98-107); Estimated CRCL calculation 87 ml/min; Estimated Glomerular Filt Rate > 60; Glucose 94 mg/dL (65-110); Lipase 159 U/L (23-300); Potassium 3.8 mmol/L (3.4-5.0); Sodium 137 mmol/L (137-145)
[2023-03-30 19:42] LABS: Appearance Urine Clear (Clear); Bilirubin Urine Negative (Negative); Blood Urine Negative (Negative); Color Urine Yellow (Yellow); Glucose Urine UA Negative (Negative); Ketones Urine Negative (Negative); Leukocyte Esterase Ur Negative LEU/UL (Negative); Nitrate Urine Negative (Negative); Protein Urine Negative (Negative); Specific Grav Ur 1.028 (1.001-1.035); Urobilinogen Urine 0.2 mg/dL (<2.0); pH Urine 6.5 (5.0-9.0)
[2023-03-30 19:47] LABS: Add Urine Microscopic? NO
--- NOTE | 2023-03-30 19:48 | PC.NURSE ---
Pt reports approx 10 episodes of diarrhea since 1300 today. States the first episode was green and yellow in color. He reports 5 episodes of bright red diarrhea. He does not take blood thinners. He c/o LLQ pain that radiates across his abdomen to the right side and to his left flank. Denies vomiting. Denies fevers. Mom reports he had surgery 6 months ago for perianal abscess. Pt states this does not feel anything like the symptoms he had at that time. Bowel sounds heard in all 4 quadrants. Abdomen soft on palpation but is tender. Pt states laying flat improves his pain and changing positions and standing makes it worse.
[2023-03-30 22:11] VITALS: BP 130/78; PULSE 88; RESP 18; O2SAT 98
--- NOTE | 2023-03-30 23:11 | ED.GENADULT ---
HPI - General Adult General Chief complaint: Abdominal Pain Stated complaint: bloody stool, N/V, abd pain Time Seen by Provider: 03/30/23 19:44 History of Present Illness HPI narrative: This is a 42-year-old male presenting ED with a chief complaint of abdominal pain. The patient's pain started at 1:00 p.m. today and is in the left side of his abdomen and radiates to the right. It is a sharp pain. It is 5 out 10 intensity and constant. He has never had pain like this before there are no exacerbating alleviating factors. It is associated with an initial episode of diarrhea and then he had some blood mixed with his stool. He denies fever/chills/nausea/v/chest pain difficulty breathing or urinary symptoms. Related Data Home Medications Medication Instructions Recorded Confirmed doxycycline hyclate 150 mg tablet 150 mg PO Q12H 09/20/22 10/04/22 Allergies Allergy/AdvReac Type Severity Reaction Status Date / Time Sulfa (Sulfonamide Allergy Intermediate hives Verified 10/04/22 14:43 Antibiotics) nystatin Allergy Mild hives Verified 10/04/22 14:43 erythromycin base AdvReac Mild Nausea Verified 10/04/22 14:43 phenobarbital AdvReac Mild hyperactivi Verified 10/04/22 14:43 [facility] Past Medical History Medical History (Updated 03/30/23 @ 23:21 by Ariel Madrigal MD) Eosinophilic esophagitis Seizures Surgical History Surgical History H/O foot surgery H/O knee surgery History of back surgery S/P orchiopexy Family History Family History Father Hypertension Mother Hypertension Grandparent Diabetes mellitus Social History Social History Smoking status: Never smoker Alcohol intake: current Gender identity (if verbalized by the patient): Male Exam Narrative: APPEARANCE: No apparent distress. Head: atraumatic. EYES: EOMI, NOSE: Atraumatic NECK: Trachea midline RESPIRATORY: No increased rate of breathing , clear to auscultation CARDIOVASCULAR: RRR, ABDOMINAL: Abdomen is soft nontender with no guarding or rebound. MUSCULOSKELETAl: No obvious deformities NEURO: Alert. Moving 4/4 extremities SKIN:: Warm, dry. Normal color PSYCHIATRIC: Normal affect Course Vital Signs Vital signs: Vital Signs Temperature 97.1 F L 03/30/23 18:16 Pulse Rate 75 03/30/23 18:16 Respiratory Rate 16 03/30/23 18:16 Blood Pressure 105/62 03/30/23 18:16 Pulse Oximetry 98 03/30/23 18:16 Oxygen Delivery Room Air 03/30/23 18:16 Temperature 97.1 F L 03/30/23 18:16 Pulse Rate 88 03/30/23 22:11 Respiratory Rate 18 03/30/23 22:11 Blood Pressure 130/78 03/30/23 22:11 Pulse Oximetry 98 03/30/23 22:11 Oxygen Delivery Room Air 03/30/23 18:16 Medical Decision Making MDM Narrative Medical decision making narrative: -Presentation: 42-year-old male presenting with abdominal pain and episode of bloody diarrhea. -DDX includes but is not limited to: Diverticulitis, colitis, hemorrhoids, gastroenteritis -Co-morbidities complicating care: eosinophilic esophagitis, XXY chromosomes, -Social determinants of health: patient works is an [employer] and lives alone -External Chart Review: none -Hx from independent Sources: mother @ bedside -Discussion of Management/Consultants: none -Independent interpretation of studies: CBCs within normal limits. Metabolic panel unremarkable. Lipase normal. Urine not indicative of infection. CT abdomen pelvis showed colitis. Dx tests considered but not ordered: None -Procedures: none -Interventions: none -Shared decision making / Disposition: Patient be discharged on a course of Cipro and Flagyl for colitis. Patient can follow-up his primary care physician. -RX Cipro, Flagyl Vital Signs Vital Signs: Vital Signs Temperature 97.1 F L 03/30
[2023-03-30 23:40] VITALS: BP 106/82; PULSE 74; RESP 16; O2SAT 100
== END 2023-03-30 23:40 | disposition home or self-care (01) ==
PROVIDERS: Emergency Medicine; Emergency Provider Emergency Medicine; PCP Internal Medicine
DX: K52.9 Noninfective gastroenteritis and colitis, unspecified (principal)
CPT/HCPCS: 36415; 74177; 80053; 81003; 83690; 85025; 99284; Q9967

== ENCOUNTER 2023-12-26 14:18 | Outpatient (CLI) | payer BC, SELFPAY ==
--- NOTE | ~2023-12-26 | CT_ITS ---
EXAMINATION: CT abdomen pelvis wo/w con DATE: 12/26/2023 15:13 INDICATION: Chronic prostatitis. TECHNIQUE: Computed tomography (CT) of the abdomen and pelvis was performed without and with intraven ous contrast using a total of 130 mL Omnipaque-350 intravenous contrast with a double-bolus technique for simultaneous opacification of the renal parenchyma and renal collecting system. Automated exposu re control and iterative reconstruction technique were employed. The dose-length product was 1306.07 mGy-cm. COMPARISON: CT abdomen and pelvis 03/30/23 FINDINGS: The visualized portions of the lung bases demonstrating minimal atelectasis. No pleural effusion. The heart size is normal. There is a trace pericardial effusion. There are cysts in the liver measuring up to 10 mm. The gallbladder is contracted. The spleen, pancreas, adrenal glands, and kidneys are nor mal. There is no urolithiasis. The ureters are well opacified and are normal. The bladder is not well distended. The prostate is unremarkable. There are no dilated loops of bowel. The appendix is normal . There are no pathologically enlarged lymph nodes. There is no free intraperitoneal fluid. There is mild thoracic and lumbar spondylosis. IMPRESSION: 1. Normal prostate. Reviewed, dictated and finalized at location E. CONTROLLER IMPRESSION: 1. Normal prostate.
== END 2023-12-26 14:19 ==
PROVIDERS: PCP Urology; Visit Provider Urology
DX: N41.1 Chronic prostatitis (principal)
CPT/HCPCS: 74178; Q9967